=== PATIENT | male | born 2000 | race Caucasian/White ===

== ENCOUNTER 2021-08-21 22:00 | Emergency (ER) | payer OTHER ==
[~2021-08-21] VITALS: Ht 175.2 cm; Wt 60.0 kg
--- OUTSIDE RECORDS SUMMARY | 2021-08-21 22:05 | XMS REPORT | Clinical Summary ---
Author Author [facility] Organization [facility] Address Unknown Phone Unavailable Care Team Providers Care Inventory Control Planner Name Role Phone Ad Huston MD PCP Source Comments Some departments are not documenting in the electronic medical record. If you d o not see the information that you expected, contact Release of Information in [facility] [employer] Information Management department at [phone] for further assistan ce in locating additional records.[facility] Allergies Comments Active Allergy Reactions Severity Noted Date Lactose DIARRHEA Low 09/10/2017 Medications End Date Status Medication Sig Dispensed Refills Start Date Active adapalene-benzoyl Apply 0 peroxide (EPIDUO FORTE) topically to 0.3-2.5 % glwp affected area. Active OXcarbazepine (TRILEPTAL) Take 1 tablet 60 tablet 0 300 mg tablet by mouth 7 twice daily. Active fluoxetine (PROZAC) 10 mg Take 3 90 capsule 0 capsule capsules by 7 mouth daily. 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 09/11/2017 History of attention deficit hyperactivity disorder 09/11/2017 Family History Medical History Relation Name Comments Diabetes Type II Father Heart Attack Maternal Grandfather Diabetes Type II Paternal Grandfather Diabetes Type II Paternal Grandmother Relation Name Status Comments Father Maternal Grandfather Paternal Grandfather Paternal Grandmother Social History Date Tobacco Use Types Packs/Day Years Used Never Smoker Smokeless Tobacco: Never Used Comments Alcohol Use Standard Drinks/Week No 0 (1 standard drink = 0.6 o z pure alcohol) Sex Assigned at Date Recorded Not on file Growth Chart Information Head Circum Date Age Height Weight 09/10/2017 16 years 173 cm (5' 61.2 kg (135 8.11") lb) Last Filed Vital Signs Reading Time Taken Comments Vital Sign 114/55 09/12/2017 8:00 AM CDT Blood Pressure 84 09/12/2017 8:00 AM CDT Pulse 36.9 C (98.4 F) 09/12/2017 8:00 AM CDT Temperature - - Respiratory Rate - - Oxygen Saturation - - Inhaled Oxygen Concentration 61.2 kg (135 lb) 09/10/2017 6:31 PM CDT waist 29" Weight 173 cm (5' 8.11") 09/10/2017 6:31 PM CDT Height 20.46 09/10/2017 6:31 PM CDT Body Mass Index Plan of Treatment Health Maintenance Due Date Last Done Comments HPV VACCINES (1 - Male 2012 2-dose series) HIV SCREENING 2016 DTAP/TDAP VACCINES (1 - 2019 Tdap) HEPATITIS C SCREENING 2019 PHYSICAL (COMPREHENSIVE) 2019 EXAM INFLUENZA VACCINE 06/26/2021 MENINGOCOCCAL VACCINE Aged Out No longer eligib le based on patient's age to (Deborah LEMOS) complete this topic Results Not on filefrom Last 3 Months Insurance Type Payer Benefit Subscriber ID Effective Phone Address Plan / Dates Group PPO [facility] [id number] 2016-P PPO resent Advance Directives [employer] Explanation Type Date Recorded Advance 09/10/2017 1:39 PM Directive/DPOA Date Inactivated Comments Code Status Date Activated 09/12/2017 2:41 PM Full Code 09/10/2017 5:50 PM Provider has discussed Code Status No, discussion no t w/Patient or Family? necessary based on Dx
--- NOTE | 2021-08-21 22:17 | ED Chest Pain ---
General Stated Complaint: CHEST PAIN / SLURRED SPEECH Source: patient Exam Limitations: no limitations History of Present Illness Date Seen by Provider: Aug 21, 2021 Time Seen by Provider: 22:06 Initial Comments Patient ER by private conveyance from home with chief complaint that about 10 minutes prior to arrival he was sitting on his bed watching TV and he had a sudden sharp substernal midline chest pain with reproducible to direct palpation and nonradiating. He will not do anything strenuous and it is not worse with exertion. No shortness of air cough fevers chills hemoptysis nausea vomiting diarrhea or recent illness. No history of heart disease. No history of any medical problems other than anxiety depression. He denies a history of panic attacks. No visual disturbances. He felt that he had slurred speech when he was talking to himself on the way to the ER. He feels the pain is getting better. He did not take anything for the pain. He denies a history of GERD or reflux. He does not smoke, have a history of hypertension, hyperlipidemia or diabetes. He does not endorse any early-onset familial heart disease. Allergies and Home Medications Allergies Coded Allergies: No Known Drug Allergies (Unverified , 08/21/21) Patient Home Medication List Home Medication List Reviewed: Yes Review of Systems Review of Systems Constitutional: No chills, No fever EENTM: No Blurred Vision, No Double Vision Respiratory: Denies Cough, Denies Shortness of Air Cardiovascular: See HPI, Chest Pain; Denies Edema, Denies Lightheadedness Gastrointestinal: Denies Abdominal Pain, Denies Constipated, Denies Diarrhea, Denies Nausea, Denies Poor Fluid Intake, Denies Vomiting Genitourinary: Denies Burning, Denies Discharge Musculoskeletal: No back pain, No joint pain Skin: No change in color, No pruritus, No rash Psychiatric/Neurological: Denies Headache, Denies Numbness All Other Systems Reviewed Negative Unless Noted: Yes Past Xrxmxvd-Amhdcs-Yutlde Hx Patient Social History Tobacco Use?: No Use of E-Cig and/or Vaping dev: No Substance use?: No Physical Exam Vital Signs Vital Signs - First Documented 08/21/21 22:15 Temp 36.3 Pulse 90 Resp 18 B/P (MAP) 154/90 (111) Pulse Ox 99 O2 Delivery Room Air Capillary Refill : Height, Weight, BMI Height: '" Weight: lbs. oz. kg; BMI Method: General Appearance: WD/WN, Anxious HEENT: PERRL/EOMI, Pharynx Normal, Moist Mucous Membranes Neck: Full Range of Motion, Normal Inspection Respiratory: No Chest Non Tender (Chest pain is exquisitely reproducible to even light palpation over the anterior chest wall); Lungs Clear, Normal Breath Sounds, No Accessory Muscle Use, No Respiratory Distress Cardiovascular: Regular Rate, Rhythm, No Edema, Normal Peripheral Pulses Gastrointestinal: Normal Bowel Sounds, Non Tender, Soft Extremity: Normal Capillary Refill, Normal Inspection, Normal Range of Motion, Non Tender, No Calf Tenderness, No Pedal Edema Neurologic/Psychiatric: Alert, Oriented x3, No Motor/Sensory Deficits, Normal Mood/Affect, rn clinical appeals II-XII Norm as Tested, Other (NIH of 0 points) Skin: Normal Color, Warm/Dry Progress/Results/Core Measures Results/Orders Lab Results Laboratory Tests Test 08/21/21 22:10 Range/Units White Blood Count 7.6 4.3-11.0 10^3/uL Red Blood Count 5.13 4.30-5.52 10^6/uL Hemoglobin 14.7 13.3-17.7 g/dL Hematocrit 44 40-54 % Mean Corpuscular Volume 86 80-99 fL Mean Corpuscular Hemoglobin 29 25-34 pg Mean Corpuscular Hemoglobin Concent 33 32-36 g/dL Red Cell Distribution Width 11.9 10.0-14.5 % Platelet Count 262 130-400 10^3/uL Mean Platelet Volume 10.6 9.0-12.2 fL Immature Granulocyte % (Auto) 0 % Neutrophils (%) (Auto) 53 42-75 % Lymphocytes (%) (Auto) 35 12-44 % Monocytes (%) (Auto) 10 0-12 % Eosinophils (%) (Auto) 1 0-10 % Basophils (%) (Auto) 1 0-10 % Neutrophils # (Auto) 4.0 1.8-7.8 10^3/uL Lymphocytes # (Auto) 2.7 1.0-4.0 10^3/uL Monocytes # (Auto) 0.7 0.0-1.0 10^3/uL Eosinophils # (Auto) 0.1 0.0-0.3 10^3/uL Basophils # (Auto) 0.1 0.0-0.1 10^3/uL Immature Granulocyte # (Auto) 0.0 0.0-0.1 10^3/uL Prothrombin Time 13.9 12.2-14.7 SEC INR Comment 1.0 0.8-1.4 Activated Partial Thromboplast Time 28 24-35 SEC Sodium Level 140 135-145 MMOL/L Potassium Level 3.5 L 3.6-5.0 MMOL/L Chloride Level 104 98-107 MMOL/L Carbon Dioxide Level 24 21-32 MMOL/L Anion Gap 12 5-14 MMOL/L Blood Urea Nitrogen 9 7-18 MG/DL Creatinine 0.93 0.60-1.30 MG/DL Estimat Glomerular Filtration Rate 105 BUN/Creatinine Ratio 10 Glucose Level 100 70-105 MG/DL Calcium Level 9.7 8.5-10.1 MG/DL Corrected Calcium 9.3 8.5-10.1 MG/DL Magnesium Level 2.1 1.6-2.4 MG/DL Total Bilirubin 0.3 0.1-1.0 MG/DL Aspartate Amino Transf (AST/SGOT) 19 5-34 U/L Alanine Aminotransferase (ALT/SGPT) 17 0-55 U/L Alkaline Phosphatase 83 40-136 U/L Total Protein 7.3 6.4-8.2 GM/DL Albumin 4.5 3.2-4.5 GM/DL Lipase 24 8-78 U/L My Orders Orders - DRE JACK Cbc With Automated Diff (08/21/21 22:10) Magnesium (08/21/21 22:10) Chest 1 View, Ap/Pa Only (08/21/21 22:10) Ekg Tracing (08/21/21 22:10) Comprehensive Metabolic Panel (08/21/21 22:10) Myoglobin Serum (08/21/21 22:10) Protime With Inr (08/21/21 22:10) Partial Thromboplastin Time (08/21/21 22:10) Monitor-Rhythm Ecg Trace Only (08/21/21 22:10) Ed Iv/Invasive Line Start (08/21/21 22:10) Lipase (08/21/21 22:10) Troponin I (08/21/21 22:10) Lidocaine 2% Viscous 15 Ml (Xylocaine Vi (08/21/21 22:30) Famotidine Tablet (Pepcid Tablet) (08/21/21 22:21) Antacid Suspension (Mylanta Suspension (08/21/21 22:30) Medications Given in ED Current Medications Medications Dose Ordered Sig/Adam Route Start Time Stop Time Status Last Admin Dose Admin Al Hydrox/Mg Hydrox/Simethicone 30 ml ONCE ONCE PO 08/21/21 22:30 08/21/21 22:31 DC 08/21/21 22:36 30 ML Lidocaine HCl 15 ml ONCE ONCE PO 08/21/21 22:30 08/21/21 22:31 DC 08/21/21 22:36 15 ML Vital Signs/I&O 08/21/21 22:15 Temp 36.3 Pulse 90 Resp 18 B/P (MAP) 154/90 (111) Pulse Ox 99 O2 Delivery Room Air Progress Progress Note #1: Time: 22:20 Progress Note Aseptic vital signs. Patient presents with a spontaneously resolving sharp reproducible pain in the center of his chest. No evidence of a DVT. Wells PE score is 0.0 points. Low risk group: 1.3% chance of PE in an ED population. 20-year-old with no risk factors or family history would be unlikely to have coronary disease however myocarditis or costochondritis or pleurisy is possible. GERD or gastritis/esophagitis is possible. We will give him a GI cocktail. EKG unremarkable. Will check a troponin. With an initial negative troponin he would have 0 points on the heart score. He does take several mood and anxiety type medications and certainly a panic attack could also have contributed to his presentation today. Progress Note #2: Time: 22:46 Progress Note Patient symptoms are gone after GI cocktail. He is feeling much better. We did discuss the differential and our concerns. We did also offer a COVID-19 swab based on the rare chance that he is asymptomatic but has findings on the chest x-ray and he declined stating he has been fully vaccinated and has no symptoms. We discussed return precautions as well as follow-up plan with primary care in a couple weeks. If he is not improving on some Carafate and omeprazole then we would encourage him to follow-up with Dr. Alberto, general surgeon to discuss EGD. The patient did not have any neurologic symptoms for us. No slurring of speech. I suspect perhaps this could be explained by the anxiety he was experiencing over his sharp chest pain. Initial ECG Impression Date: Aug 21, 2021 Initial ECG Impression Time: 22:03 Initial ECG Rate: 84 Initial ECG Rhythm: Normal Sinus Initial ECG Intervals: Normal Initial ECG Impression: Normal Initial ECG Comparisson: No Previous ECG Available Comment Normal sinus rhythm without clinically relevant ST elevation or depression. Diagnostic Imaging Diagonstic Imaging: Xray Plain Films/CT/US/NM/MRI: chest Comments NAME: MERRILL JAIME [facility] REC#: [id number] PT STATUS: REG ER : 2000 PHYSICIAN: DRE JACK MD ADMIT DATE: 08/21/21/ER Draft Date of Exam:08/21/21 CHEST 1 VIEW, AP/PA ONLY EXAMINATION: Chest 1 view. HISTORY: Chest pain. COMPARISON: None available. FINDINGS: Heart size and pulmonary vasculature are normal. Minimal interstitial opacities within the right lower lung. No pleural effusion or pneumothorax. The osseous structures are intact. IMPRESSION: Minimal interstitial opacities in the right lower lung which could represent atelectasis, edema or atypical infection. Dictated on workstation # [id number] Dict: 08/21/212229 Trans: 08/21/212233 [facility] [id number] Interpreted by: LINDSEY SIGALA DO Electronically signed by: Reviewed: Reviewed by Me Departure Impression Primary Impression: GERD with esophagitis Qualified Codes: K21.00 - Gastro-esophageal reflux disease with esophagitis, without bleeding Disposition: 01 HOME, SELF-CARE Condition: Stable Departure-Patient Inst. Decision time for Depature: 22:48 Referrals: TODD ALBERTO MD NO,LOCAL PHYSICIAN (PCP) Primary Care Physician Patient Instructions: Acid Reflux and GERD in Adults (DC) Add. Discharge Instructions: I suspect you had some irritation in the lining of your esophagus and stomach that resulted in the pain you felt tonight. If it comes back again try some Tums, Maalox, Rolaids or similar antacid. We will start you on a course of omeprazole 20 mg twice a day for the next 4 we eks to reduce your stomach acid. Carafate half an hour before meals and at bedtime. This will help protect the lining of your stomach and give it a chance to heal. If you are not seeing improvement over the next 2 weeks of these medications then follow-up with Dr. Kido, general surgeon to discuss doing an EGD. Follow-up with [facility] or your primary care doctor in 2 to 4 weeks to discuss progression of your symptoms as well. Promptly return to the nearest ER for intractable chest pain, shortness of air or other worrisome symptoms. Scripts Sucralfate (Carafate) 1 Gm Tablet 1 GM PO QIDACHS for 14 Days, #56 TAB Prov: DRE JACK 08/21/21 Omeprazole (Omeprazole) 20 Mg Capsule. 20 MG PO BID for 30 Days, #60 CAP 0 Refills Prov: DRE JACK 08/21/21 Copy Copies To 1: TODD ALBERTO MD, TITUS J Aug 21, 2021 22:17
[2021-08-21 22:18] LABS: BASOPHILS # (AUTO) 0.1 10^3/uL (0.0-0.1); BASOPHILS % (AUTO) 1 % (0-10); EOSINOPHILS # (AUTO) 0.1 10^3/uL (0.0-0.3); EOSINOPHILS % (AUTO) 1 % (0-10); HEMATOCRIT 44 % (40-54); HEMOGLOBIN 14.7 g/dL (13.3-17.7); LYMPHOCYTES # (AUTO) 2.7 10^3/uL (1.0-4.0); LYMPHOCYTES % (AUTO) 35 % (12-44); MEAN CORPUSCULAR HEMOGLOBIN 29 pg (25-34); MEAN CORPUSCULAR HGB CONC 33 g/dL (32-36); MEAN CORPUSCULAR VOLUME 86 fL (80-99); MEAN PLATELET VOLUME 10.6 fL (9.0-12.2); MONOCYTES # (AUTO) 0.7 10^3/uL (0.0-1.0); MONOCYTES % (AUTO) 10 % (0-12); NEUTROPHILS % (AUTO) 53 % (42-75); PLATELET COUNT 262 10^3/uL (130-400); WHITE BLOOD COUNT 7.6 10^3/uL (4.3-11.0)
[2021-08-21] MEDS ORDERED: FAMOTIDINE 20 MG (PEPCID) TABLET PO STA (22:21)
[2021-08-21 22:28] LABS: PROTHROMBIN TIME PATIENT 13.9 SEC (12.2-14.7)
[2021-08-21] MEDS ORDERED: LIDOCAINE 2% VISCOUS 15 ML UDC PO ONE (22:30)
[2021-08-21] MEDS ORDERED: ANTACID SUSP 30 ML UDC (MYLANTA) PO ONE (22:30)
[2021-08-21 22:32] LABS: ALBUMIN 4.5 GM/DL (3.2-4.5); POTASSIUM 3.5 MMOL/L (3.6-5.0)
[2021-08-21 22:33] LABS: CALCIUM 9.7 MG/DL (8.5-10.1)
[2021-08-21 22:34] LABS: TOTAL PROTEIN 7.3 GM/DL (6.4-8.2)
--- NOTE | 2021-08-21 22:34 | Diagnostic Imaging Report ---
EXAMINATION: Chest 1 view. HISTORY: Chest pain. COMPARISON: None available. FINDINGS: Heart size and pulmonary vasculature are normal. Minimal interstitial opacities within the right lower lung. No pleural effusion or pneumothorax. The osseous structures are intact. IMPRESSION: Minimal interstitial opacities in the right lower lung which could represent atelectasis, edema or atypical infection. Dictated by: Dictated on workstation # [id number]
[2021-08-21 22:36] LABS: BILIRUBIN,TOTAL 0.3 MG/DL (0.1-1.0)
[2021-08-21 22:38] LABS: CREATININE SERUM 0.93 MG/DL (0.60-1.30)
[2021-08-21 22:41] LABS: MAGNESIUM 2.1 MG/DL (1.6-2.4)
[2021-08-21] MEDS ORDERED: SUCR1TAB36 PO (22:53)
[2021-08-21] MEDS ORDERED: OMEP20CA18 PO (22:53)
[2021-08-21 23:02] VITALS: BP 138/85
== END 2021-08-21 23:00 | disposition home or self-care (01) ==
LOC: ER 22:02
DX: K21.00 Gastro-esophageal reflux disease with esophagitis, without bleeding (principal)
CPT/HCPCS: 36415; 71045; 80053; 83690; 83735; 83874; 84484; 85025; 85610; 85730; 93005; 93041

== ENCOUNTER 2022-02-21 18:15 | Emergency (ER) | payer OTHER ==
[~2022-02-21] VITALS: Ht 175.3 cm; Wt 69.4 kg
[~2022-02-21 18:15] MED LIST: OMEP20CA18 PO; SUCR1TAB36 PO
[2022-02-21] MEDS ORDERED: IBUPROFEN 800 MG (MOTRIN) TAB PO ONE (19:30)
[2022-02-21] MEDS ORDERED: ACETAMINOPHEN 500 MG TAB (TYLENOL) PO ONE (19:30)
--- NOTE | 2022-02-21 19:51 | ED General ---
General Chief Complaint: COVID19 Suspect/Confirmed Stated Complaint: COVID SYMPTOMS Nursing Triage Note: Pt arrives via POV from home for c/o Covid/Flu symptoms, fever, chills, et headache. Pt reports Covid positive in November of this year. Pt reports receiving Moderna vaccines x2 et booster. Source of Information: Patient Exam Limitations: No Limitations (JAIME DE LA VEGA APRN) History of Present Illness Date Seen by Provider: Feb 21, 2022 Time Seen by Provider: 19:49 Initial Comments Sore throat + headache x48-72 hrs. Febrile on arrival at 101.5. Had covid in november. No cough. Timing/Duration: 1-2 Days Severity: Moderate Associated Systoms: Headaches (JAIME DE LA VEGA APRN) Allergies and Home Medications Allergies Coded Allergies: No Known Drug Allergies (Unverified , 08/21/21) Patient Home Medication List Home Medication List Reviewed: Yes (JAIME DE LA VEGA APRN) Omeprazole (Omeprazole) 20 Mg Capsule.dr, 20 MG PO BID Prescribed by: DRE JACK on 08/21/212252 Sucralfate (Carafate) 1 Gm Tablet, 1 GM PO QIDACHS Prescribed by: DRE JACK on 08/21/212252 Review of Systems Review of Systems Constitutional: see HPI, chills, fever EENTM: see HPI, throat pain Respiratory: see HPI Cardiovascular: no symptoms reported Genitourinary: no symptoms reported Musculoskeletal: no symptoms reported Skin: no symptoms reported Psychiatric/Neurological: No Symptoms Reported Hematologic/Lymphatic: No Symptoms Reported Immunological/Allergic: no symptoms reported (JAIME DE LA VEGA APRN) Past Bhrkbxw-Mfuwpp-Zaxsyq Hx Patient Social History Tobacco Use?: No Use of E-Cig and/or Vaping dev: No Substance use?: No Alcohol Use?: No Pt feels they are or have been: No (JAIME DE LA VEGA APRN) Immunizations Up To Date COVID19 Vaccine Pipe Coverer: Moderna (JAIME DE LA VEGA APRN) Physical Exam Vital Signs Vital Signs - First Documented 02/21/22 19:00 Temp 38.6 Pulse 110 Resp 18 B/P (MAP) 123/78 (93) Pulse Ox 98 O2 Delivery Room Air (KRUNALMARYLIN K DO) Vital Signs Capillary Refill : Less Than 3 Seconds (JAIME DE LA VEGA APRN) Height, Weight, BMI Height: '" Weight: lbs. oz. kg; 22.00 BMI Method: General Appearance: No Apparent Distress, WD/WN Eyes: Bilateral Eye Normal Inspection, Bilateral Eye PERRL HEENT: PERRL/EOMI, TMs Normal, Pharyngeal Erythema; No Tonsillar Exudate, No Tonsillar Enlargement Neck: Lymphadenopathy (L), Lymphadenopathy (R) (minor anterior cervical chain adenopathy) Respiratory: No Accessory Muscle Use, No Respiratory Distress Cardiovascular: Regular Rate, Rhythm, Normal Peripheral Pulses Gastrointestinal: Normal Bowel Sounds, Non Tender, Soft Extremity: Normal Capillary Refill, Normal Inspection Neurologic/Psychiatric: Alert, Oriented x3 Skin: Normal Color, Warm/Dry (JAIME DE LA VEGA APRN) Progress/Results/Core Measures Suspected Sepsis SIRS Temperature: Pulse: 110 Respiratory Rate: 18 Blood Pressure 123 /78 Mean: 93 (JAIME DE LA VEGA APRN) Results/Orders Lab Results Laboratory Tests Test 02/21/22 19:05 02/21/22 20:25 Range/Units Influenza Type A (RT-PCR) Not Detected Not Detecte Influenza Type B (RT-PCR) Not Detected Not Detecte SARS-CoV-2 RNA (RT-PCR) Not Detected Not Detecte Group A Streptococcus Screen NEGATIVE NEGATIVE (MARYLIN HECTOR DO) Medications Given in ED Current Medications Medications Dose Ordered Sig/Adam Route Start Time Stop Time Status Last Admin Dose Admin Acetaminophen 1,000 mg ONCE ONCE PO 02/21/22 19:30 02/21/22 19:31 DC 02/21/22 19:31 1,000 MG Ibuprofen 800 mg ONCE ONCE PO 02/21/22 19:30 02/21/22 19:31 DC 02/21/22 19:31 800 MG (KRUNALMARYLIN K DO) Vital Signs/I&O 02/21/22 02/21/22 02/21/22 19:00 19:00 20:29 Temp 38.6 37.2 Pulse 110 98 Resp 18 18 B/P (MAP) 123/78 (93) 133/75 Pulse Ox 98 99 O2 Delivery Room Air Room Air Room Air (JESSICA HECTORA K DO) Vital Signs/I&O Capillary Refill : Less Than 3 Seconds (JAIME DE LA VEGA APRN) Blood Pressure Mean: 93 Departure Impression Primary Impression: Pharyngitis Disposition: 01 HOME, SELF-CARE Condition: Stable Departure-Patient Inst. Decision time for Depature: 20:22 (JAIME DE LA VEGA APRN) Referrals: NO,LOCAL PHYSICIAN (PCP/Family) Primary Care Physician Patient Instructions: Sore Throat, Adult (DC) Add. Discharge Instructions: . We will call you with your strep results later this evening. If it is negative this is most likely just a viral infection causing sore throat and it will last about a week. Tylenol and ibuprofen along with increasing fluid intake. Of course if it is positive for strep then will need to start you on some antibiotics. All discharge instructions reviewed with patient and/or family. Voiced understanding. Work/School Note: Work Release Form Date Seen in the Emergency Department: Feb 21, 2022 Return to Work: Feb 23, 2022 ATTENDING PHYSICIAN NOTE: I WAS PHYSICALLY PRESENT ER PHYSICIAN, BUT I WAS NOT INVOLVED IN ANY DECISION MAKING OR ANY CARE OF THIS PATIENT. (MARYLIN HECTOR DO) JAIME DE LA VEGA APRN Feb 21, 2022 19:51 MARYLIN HECTOR DO Feb 22, 2022 03:31
[2022-02-21 20:29] VITALS: BP 133/75
== END 2022-02-21 20:31 | disposition home or self-care (01) ==
LOC: EDUNIT# 18:15 → ER 18:18
DX: J02.9 Acute pharyngitis, unspecified (principal); Z20.822 Contact with and (suspected) exposure to COVID-19
CPT/HCPCS: 87430; 87636; 99283